=== PATIENT | male | born 1945 | race Caucasian/White ===

== ENCOUNTER 2016-05-02 17:13 | Inpatient (IN) | payer MEDICARE, OTHER ==
[2016-05-02] MEDS ORDERED: Haloperidol Lactate 5 mg/mL 1mL Vial ONE (17:34)
[2016-05-02] MEDS ORDERED: Haloperidol Lactate 5 mg/mL 1mL Vial IM PRN (17:43)
[2016-05-02 18:25] VITALS: BP 158/94
[2016-05-02] MEDS ORDERED: Magnesium Hydroxide (MOM) 30 mL UDC PO PRN (19:45)
[2016-05-02] MEDS ORDERED: OLANZapine 10 mg Oral Disintegrating Tab PO SCH (21:00)
--- NOTE | 2016-05-03 10:28 | Diagnostic Imaging Report ---
CHEST X-RAY: AP view INDICATION: Pneumonia COMPARISON: Chest x-ray 10/23/2014 FINDINGS: Mild chronic lung changes are noted. There is no focal consolidation or pleural effusions The heart is normal in size. The osseous structures demonstrate no acute abnormalities. No evidence of a pneumothorax. IMPRESSION: No focal acute pulmonary process.
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
--- NOTE | 2016-05-04 19:17 | Progress Notes ---
TIME PATIENT SEEN: 10:15 a.m. SUBJECTIVE: Staff was spoken to. The patient is interviewed. Mood is noted to be irritable. Affect is constricted. The patient is still having a pressured speech. Insight and judgment are noted to be very much impaired. Impulse control seems to be poor. The patient is noted to be very intrusive. No side effects to the medications are noted. The patient is ____ Zyprexa and Seroquel. Yesterday, the patient was mentioning that he did not like the Zyprexa. He would like to go with the Seroquel, but today he is stating that he wants the Zyprexa again. ASSESSMENT: The patient is still confused and having acute mood swings. PLAN: To continue the patient with supportive therapy. I encouraged the patient to verbalize the concerns rather than to act out. JOB# [id number]
--- NOTE | 2016-05-06 00:36 | Progress Notes ---
TIME PATIENT SEEN: 5:45 p.m. SUBJECTIVE: Staff was spoken to. The patient is interviewed. Mood is noted to be irritable. Affect is constricted. Insight and judgment are noted to be impaired. Impulse control seems to be poor. Coping skills are also noted to be poor. The patient is still ____testing the limits. The patient's major concern is the mood swings and intrusiveness. ASSESSMENT: The patient is still grossly psychotic and impulsive. PLAN: To continue the patient with the supportive therapy. I encouraged the patient to verbalize the concerns rather than to act out. The patient is not ready to be discharged to a lower level of care yet. JOB# [id number]
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
--- NOTE | 2016-05-07 23:44 | Progress Notes ---
PSYCHIATRIC PROGRESS NOTE TIME PATIENT SEEN: 9 a.m. SUBJECTIVE: Staff was spoken to. The patient is interviewed. Mood is noted to be anxious. Affect is constricted. Insight and judgment at this time are noted to be still impaired. Impulse control seemed to be limited. Coping skills are also noted to be poor. No side effects to the medications are noted. The patient has been having acute mood swings. The patient's sleep is noted to be poor. Appetite is noted to be improving at this time. ASSESSMENT: The patient is still having mood swings and psychosis. PLAN: To continue the patient with supportive therapy and followup. JOB# [id number]
--- NOTE | 2016-05-08 21:33 | Progress Notes ---
PSYCHIATRIC PROGRESS NOTE TIME PATIENT SEEN: 9:00 a.m. SUBJECTIVE: Staff was spoken to. The patient is interviewed. Mood is noted to be irritable. Affect is constricted. The patient's behavior is noted to be very bizarre. The patient has ____ and has defecated and urinated ____. The patient has no insight into his illness. The patient is grossly psychotic at this time. ASSESSMENT: The patient is still very psychotic and impulsive. PLAN: To continue the patient with the current medications. I encouraged the patient to verbalize the concerns rather than to act out. The patient is going to be closely monitored. JOB# [id number]
--- NOTE | 2016-05-09 22:05 | Progress Notes ---
PSYCHIATRIC PROGRESS NOTE TIME PATIENT SEEN: 4:00 p.m. SUBJECTIVE: Staff was spoken to. The patient is interviewed. Mood is noted to be irritable. Affect is constricted. Insight and judgment are noted to be impaired. Impulse control seems to be poor. The patient is still testing the limits. The patient is acting very bizarre. Coping skills are noted to be very poor at this time. The patient has been refusing to take the Seroquel in the morning and hence the evening dose of the Seroquel is going to be increased to 200 mg and the patient is going to be followed up. The patient is not ready to be discharged to his lower level of care yet. [facility]# [id number]
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
--- NOTE | 2016-05-12 00:52 | Progress Notes ---
PSYCHIATRIC PROGRESS NOTE TIME PATIENT SEEN: 10:15 a.m. SUBJECTIVE: Staff was spoken to. The patient is interviewed. Mood is noted to be dysphoric. Coping skills are noted to be very poor. The patient's . The patient is pacing most of the time on the unit, and the patient has been demanding that he should be discharged. The patient has no place to return to. [address] [employer] property manager has been diligently trying to look for placement for this patient, but the patient has been refusing to go to a group home facility. ASSESSMENT: The patient is still psychotic and impulsive. PLAN: To continue the patient with the current medications and request for the Depakote level. JOB# [id number]
--- NOTE | 2016-05-13 04:58 | Progress Notes ---
TIME PATIENT SEEN: 10 a.m. SUBJECTIVE: Staff was spoken to. The patient is interviewed. Mood is noted to be irritable. Affect is labile. Insight and judgment appear to be very much impaired. The patient is bizarre, but he has been able to be redirected. No side effect to meds are noted. The patient, however, has been testing limits he wants to take the Zyprexa, then Seroquel. The patient is on 200 mg of the Seroquel at nighttime.The patient has no placement . surgical manager has been diligently tryingto look for placement for this patient. ASSESSMENT: The patient is still psychotic. PLAN: To continue the patient with the supportive therapy and follow. JOB# [id number] [email or web address]
--- NOTE | 2016-05-13 18:52 | Progress Notes ---
TIME PATIENT SEEN: 08:15 a.m. SUBJECTIVE: Staff was spoken to. The patient is interviewed. Mood is noted to be anxious. The patient is stating that he is not cared for and he wants to find a reason why the patient is asking that he needs to file his nails. The patient has no insight into his illness. Continues to be paranoid, pacing most of the time on the unit. The patient's behavioral health case manager has been looking to convince the patient to go to a fdc facility as the patient has been reluctant stating that he has his own place. ASSESSMENT: The patient is still psychotic. PLAN: To continue the patient with Seroquel and Depakote and follow him up with supportive therapy. JOB# [id number]
--- NOTE | 2016-05-14 12:32 | Progress Notes ---
PSYCHIATRIC PROGRESS NOTE TIME PATIENT SEEN: 7:15 a.m. SUBJECTIVE: Staff was spoken to. The patient is interviewed. Mood is noted to be irritable. Affect is constricted. Insight and judgment at this time are noted to be still impaired. Impulse control seems to be limited. The patient has been having difficult time to accept that he needs replacement. trials manager has been trying to get the patient into a stable environment, but patient has been refusing to do so. So far, the patient has been currently on Seroquel and is going to be gradually increased to 300 mg at bedtime. The patient is continued on the Depakote at 500 mg twice a day. The patient is going to be closely monitored. The patient has been very argumentative and has no place to return to and it is becoming difficult to look for placement for this patient. trials manager is going to be contacted with regards to the possible discharge at this patient when he is stabilized. JOB# [id number]
--- NOTE | 2016-05-16 13:07 | Progress Notes ---
PSYCHIATRIC PROGRESS NOTE TIME PATIENT SEEN: 7:15 a.m. SUBJECTIVE: Staff was spoken to. The patient is interviewed. Mood is noted to be anxious. Affect is appropriate. Not suicidal or homicidal. Insight and judgment noted to be fair. Impulse control is also noted to be fair. The patient is stating that he has his own psychiatrist outpatient basis and he is going to be following through. The patient's friend from the [facility] has been willing to come and pick him up. ASSESSMENT: The patient is stabilizing. PLAN: To continue the patient with the supportive therapy. The patient is currently on Depakote and Seroquel, but he changes his mind and he wants to go on the Zyprexa when he gets out. The patient is going to be discharged today for followup on outpatient basis. JOB# [id number]
--- NOTE | 2016-05-19 16:24 | History & Physical ---
HISTORY OF PRESENT ILLNESS: The patient is 71 years old, with long history of psychosis, dementia, COPD, admitted to [facility] for evaluation and treatment. The patient denies any chest pain, any shortness of breath, nausea, vomiting, fever, chills. PAST MEDICAL HISTORY: Significant for COPD and psychosis. PAST SURGICAL HISTORY: No recent surgery. ALLERGIES: None. MEDICATIONS: Follow admission reconciliation. SOCIAL HISTORY: He is a chronic smoker. No alcohol, no drugs. FAMILY HISTORY: Noncontributory. REVIEW OF SYSTEMS: RENAL SYSTEM: No history of chronic renal disorder. CARDIOVASCULAR SYSTEM: No coronary artery disease. ENDOCRINE SYSTEM: No diabetes or thyroid problem. GASTROINTESTINAL SYSTEM: No upper or lower gastrointestinal bleed. NEUROLOGICAL: He has psychosis. MUSCULOSKELETAL SYSTEM: No muscular dystrophy. HEMATOLOGIC SYSTEM: No bleeding tendencies. PULMONARY SYSTEM: He has history of COPD. GENITOURINARY: No dysuria or hematuria. PHYSICAL EXAMINATION: GENERAL: He is awake, alert, mildly confused. VITAL SIGNS: Temperature 98, heart rate 78, blood pressure 134/70. HEENT: Normocephalic. Pupils reactive to light and accommodation. Sclerae clear. NECK: Supple. Negative for lymphadenopathy, JVD or bruit. CHEST: Bilateral diminished. No wheezing. HEART: S1, S2 normal, no gallop. ABDOMEN: Soft, bowel sounds positive. EXTREMITIES: No edema. NEUROLOGIC: He is awake, alert, mildly confused. No focal motor or sensory deficits. Cranial nerves 2-12 intact. ASSESSMENT: 1. Chronic obstructive pulmonary disease. 2. Psychosis. PLAN: The patient admitted to the hospital under Dr. Guerrero's service. MEDICAL PROBLEM TO BE ADDRESSED DURING HOSPITALIZATION: Psychosis. MEDICAL PROBLEMS TO BE ADDRESSED AT DISCHARGE: COPD, ____ smoking. The patient is medically stable for activity. Thank Dr. Guerrero for asking me to see your patient. JOB# [id number]
--- NOTE | 2016-05-28 19:53 | Discharge Summary ---
IDENTIFYING DATA: The patient is a 71-year-old male living by himself. JUSTIFICATION OF HOSPITALIZATION: The patient is admitted on a 5250 ____ . CHIEF COMPLAINT: ____. DIAGNOSES AT THE TIME OF ADMISSION: AXIS I: 1a. Bipolar disorder, mixed with psychotic symptoms rule out schizoaffective disorder. 1b. Alcohol abuse. AXIS II: None. AXIS III: As per DrMarilee ____. HISTORY OF PRESENT ILLNESS: Please refer to the 05/03/2016, dictation done by me. Physical examination was done by Dr. Issa and is noted to be significant for COPD. HOSPITAL COURSE AND RESPONSE TO TREATMENT: Blood work has been reviewed and the patient has been encouraged to participate in the groups and verbalize the concerns. The patient has been started on Depakote, which is raised up to 500 mg twice a day. The patient has been placed on the Seroquel, which was increased up to 300 mg. With these medications the patient's mood swings started to come under control, aggressive behavior came under control and the patient was finally discharged on 05/16/2016, with the recommendation that he is going to be seeking treatment at the ____ and the patient is going to be followed up by a psychiatrist over there. MENTAL STATUS EXAMINATION AT THE TIME OF DISCHARGE: Noted to be stable. The patient is not presenting as a threat to self or others. Mood swings are still coming under control. DIAGNOSES AT THE TIME OF DISCHARGE: AXIS I: Bipolar disorder mixed with psychotic symptoms. AXIS II: None. AXIS III: Chronic obstructive pulmonary disease. AFTERCARE PLAN: The patient is discharged to [facility] to be followed up on an outpatient basis. PROGNOSIS: At the time of discharge is noted to be guarded. JOB# [id number]
== END 2016-05-16 12:00 | disposition home or self-care (01) | DRG 885 ==
LOC: GERO 17:13
PROVIDERS: ADMIT Psychiatry & Neurology Psychiatry; ATTEND Psychiatry & Neurology Psychiatry
DX: F31.60 Bipolar disorder, current episode mixed, unspecified (principal); J44.9 Chronic obstructive pulmonary disease, unspecified; F10.10 Alcohol abuse, uncomplicated; F29 Unspecified psychosis not due to a substance or known physiological condition; Z88.8 Allergy status to other drugs, medicaments and biological substances; Z88.0 Allergy status to penicillin
CPT/HCPCS: 71010-TC; 90899; G0410; J1200; J1630; Z7610

== ENCOUNTER 2017-08-01 16:12 | Inpatient (IN) | payer MEDICARE, OTHER ==
[2017-08-01 16:53] VITALS: BP 0/0
[2017-08-01] MEDS ORDERED: Magnesium Hydroxide (MOM) 30 mL UDC PO PRN (17:26)
[2017-08-02] MEDS: Multivitamin Tab PO SCH (08:13)
[2017-08-02] MEDS: Maalox 30 mL Cup PO PRN (11:19)
[2017-08-02] MEDS ORDERED: Magnesium Hydroxide (MOM) 30 mL UDC PO PRN (13:28)
[2017-08-02] MEDS ORDERED: Haloperidol Lactate 5 mg/mL 1mL Vial ONE (16:35)
[2017-08-02] MEDS ORDERED: Haloperidol Lactate 5 mg/mL 1mL Vial IM ONE (16:40)
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
[2017-08-03] MEDS: Multivitamin Tab PO SCH (08:58)
--- NOTE | 2017-08-04 01:32 | Progress Notes ---
DATE: 08/03/2017 SUBJECTIVE: Staff was spoken to. The patient is interviewed. Mood is noted to be irritable. Affect is constricted. Coping skills at this time are noted to be very poor. Insight and judgment also noted to be very poor. The patient is still testing the limits. No side effects to the medications are noted. The patient has been pacing most of the time on the unit. The patient has been verbally abusive towards the staff. ASSESSMENT: The patient is still impulsive and psychotic. PLAN: To continue the patient with the current medications and follow up with the supportive therapy. JOB# [id number]
--- NOTE | 2017-08-04 05:56 | Consultation ---
DATE OF CONSULTATION: 08/03/2017 REFERRING PHYSICIAN: Estephania Guerrero MD TYPE OF CONSULTATION: Psychology. HISTORY OF PRESENT ILLNESS: The patient is a 72-year-old male. According to the record, the patient is homeless. The following is by review of the medical record and by the patient's self-report. The patient is being admitted on a 5150 from [facility]. Upon interview, the patient admits that he is in need of help. According to the record, the patient has been homeless and panhandling on the street and unable to support himself. The patient was evaluated by the police and placed on a 5150 and taken to [facility]. The patient was medically stabilized and transferred here for further stabilization. The patient currently denies any suicidal ideation, plan or intention. PAST MEDICAL HISTORY: Please see history and physical by Dr. Zelaya. PAST PSYCHIATRIC HISTORY: The patient has had multiple previous psychiatric hospitalizations. The patient has had a hospitalization here in the past. The patient has a history of bipolar disorder. The patient has a history of noncompliance with medication according to review of the record. SUBSTANCE ABUSE HISTORY: The patient has a history of alcohol dependence. The patient denied any current use. This needs further evaluation. PSYCHOSOCIAL HISTORY: The patient is currently homeless. The patient did not answer questions about occupational history or educational history. The patient denies any current legal problems. This may need clarification. The patient denied any history of physical or sexual abuse. The patient states that he is gnosticism, but did not specify any denomination or gnosticism affiliation. MENTAL STATUS EXAMINATION: The patient appears to be his stated age. The patient's attitude is superficially cooperative. Eye contact is poor. Speech is pressured and rambling. Mood is irritable. Affect is constricted. Thought process shows to be markedly tangential. The patient denied any auditory or visual hallucinations. The patient denies any delusions. There may be evidence of some paranoid ideation, this needs further evaluation. The patient denied any suicidal ideation, plan or intention. During the clinical interview the patient became easily agitated with episodes of verbal abuse. The patient was able to be deescalated. Impulse control is inadequate. Concentration is poor. There are apparent cognitive deficits. The patient did not participate in the memory assessment. The patient did not participate in the interpretation of proverbs. Sensorium is alert and oriented to person, place and self. Insight is impaired. Judgment is impaired. DIAGNOSTIC IMPRESSION: AXIS I: 1. History of bipolar disorder mixed with psychotic symptoms. 2. Provisional diagnosis of alcohol dependence. AXIS II: Deferred. AXIS III: Please see history and physical by Dr. Zelaya. TREATMENT PLAN: The patient has been seen by Dr. Guerrero for psychiatric evaluation and further management of the patient's psychotropic medications. The patient was having a difficult time coping and became verbally abusive towards staff members as well as screaming and yelling. The patient was given a dose of Haldol, Benadryl and Ativan to assist with de-escalation and containing his acting out behaviors. The patient is currently on divalproex 500 mg twice a day and is also on 300 mg of Seroquel at nighttime. These medications are to be continued according to the MD psychiatrist. We will provide supportive psychotherapy to include reality orientation, reality differentiation and reality integration. We will provide a simple de-escalation skill and limit setting to assist the patient and becoming cognitively and behaviorally redirectable and to follow through with staff direction. We will provide stress management to increase the patient's frustration tolerance. We will provide motivational enhancement for the patient to become compliant and stay compliant with all aspects of his care and treatment plan. We will encourage the patient to be able to demonstrate emotional and self-regulation prior to discharge. We will provide coping strategies for phase of life issues as well as for chronic long-term severe mental illness. We will provide motivational interviewing for abstinence from alcohol and possible residential treatment. We will encourage the patient to accept placement and to be followed by both Psychiatry and Psychology post-discharge. Thank you, Dr. Guerrero, for this consult and the opportunity to participate in this patient's care. JOB# [id number] BEATA
[2017-08-04] MEDS: Multivitamin Tab PO SCH (09:13)
--- NOTE | 2017-08-04 17:30 | Progress Notes ---
DATE: 08/04/2017 PSYCHIATRIC PROGRESS NOTE SUBJECTIVE: Staff was spoken to. The patient is interviewed. Mood is noted to be irritable. Affect is constricted. The patient is very selective in taking the medications. The patient is stating that he does not need the Depakote in the morning because that is making him to be too sleepy and the patient is reporting that he needs to be on the Depakote only at nighttime. The patient has been testing the limits. The patient has been having acute mood swings. The patient's insight and judgment at this time are noted to be very much impaired. Impulse control is noted to be poor. Coping skills are noted to be poor. ASSESSMENT: The patient is still having mood swings. PLAN: Since the patient has been reluctant to comply with the Depakote in the morning and it is decided to go with 1000 mg of Depakote at nighttime and continue the patient on the Seroquel. The patient is at this time, still not ready to be discharged to a lower level of care in view of his acute mood swings and paranoia. JOB# [id number]
[2017-08-04] MEDS: Maalox 30 mL Cup PO PRN (22:13)
[2017-08-05] MEDS: Multivitamin Tab PO SCH (08:46)
[2017-08-05] MEDS ORDERED: Haloperidol Lactate 5 mg/mL 1mL Vial IM ONE (10:29)
[2017-08-05] MEDS: Maalox 30 mL Cup PO PRN ×2 (10:54→21:35)
--- NOTE | 2017-08-05 14:23 | Progress Notes ---
DATE: 08/05/2017 SUBJECTIVE: Staff was spoken to. The patient is interviewed. The patient is very disruptive. The patient has been out of control and ____ judgment are very much impaired. The patient is still insisting on having his way. ASSESSMENT: The patient is still impulsive and psychotic. PLAN: To add the Haldol 5 mg, Benadryl 50 and Ativan 1 mg p.o. now to contain the patient's agitation and followup. JOB# [id number]
[2017-08-06] MEDS: Multivitamin Tab PO SCH (08:54)
[2017-08-06] MEDS: Maalox 30 mL Cup PO PRN ×2 (10:06→20:38)
--- NOTE | 2017-08-07 01:47 | Progress Notes ---
DATE: 08/06/2017 SUBJECTIVE: Staff was spoken to. The patient is interviewed. Mood is noted to be irritable. Affect is constricted. Insight and judgment are noted to be still impaired. Impulse control is noted to be poor. Coping skills are also noted to be very poor. The patient has been having difficult time to cope with the stress. The patient continues to be irritable and angry. No side effects to the medications are noted. The patient has been closely monitored. The patient is currently on the valproic acid 1000 mg at bedtime and Seroquel is being given at 300 mg at bedtime. The patient has been able to tolerate the medications. No side effects to the medications are noted at this time. ASSESSMENT: The patient is still impulsive and having mood swings. PLAN: To continue the patient with the supportive therapy and followup. JOB# [id number]
[2017-08-07] MEDS: Multivitamin Tab PO SCH (09:11)
[2017-08-07] MEDS: Maalox 30 mL Cup PO PRN (10:30)
--- NOTE | 2017-08-08 01:05 | Progress Notes ---
DATE: 08/07/2017 SUBJECTIVE: Staff was spoken to. The patient is interviewed. Mood is noted to be anxious. Affect is constricted. Insight and judgment at this time are noted to be still impaired. Impulse control seems to be limited. The patient has been displaying very disruptive behavior and aggressive behavior. The patient has been drinking from the urinal and has been getting the coffee into the urinal. The patient has no insight into his illness. Coping skills are noted to be very poor. The patient has been redirected at this time. The patient is currently on Seroquel and has been able to tolerate the medication. ASSESSMENT: The patient is still grossly psychotic, impulsive and gravely disabled. PLAN: To continue the patient with the supportive therapy, I encouraged the patient to verbalize the concerns. The patient is currently on 1000 mg of the Depakote and 300 mg of the Seroquel, which is going to be increased to 400 mg at bedtime and the patient is going to be followed up. The patient is grossly psychotic and he is not ready to be discharged to a lower level of care. JOB# [id number]
[2017-08-08] MEDS: Multivitamin Tab PO SCH (09:10)
[2017-08-08] MEDS: Maalox 30 mL Cup PO PRN (10:49)
--- NOTE | 2017-08-09 00:18 | Progress Notes ---
DATE: 08/08/2017 SUBJECTIVE: Staff was spoken to. The patient is interviewed. Mood is noted to be irritable. Affect is constricted. The patient's insight and judgment are noted to be still impaired. Impulse control is noted to be limited. The patient has been pacing most of the time on the unit. The patient is stating that he has been having stomach upset. . The patient is currently on Seroquel 400 mg at bedtime and Depakote 1000 mg at bedtime. Even with these medications, the patient has been having difficult time to cope with the stress. No side effects to the medications are noted. ASSESSMENT: The patient is still grossly psychotic and having acute mood swings. PLAN: To continue the patient with the supportive therapy, encouraged the patient to verbalize the concerns rather than to act out. JOB# [id number]
[2017-08-09] MEDS: Multivitamin Tab PO SCH (09:29)
--- NOTE | 2017-08-10 01:34 | Progress Notes ---
DATE: 08/09/2017 PSYCHIATRIC PROGRESS NOTE SUBJECTIVE: Staff was spoken to. The patient is interviewed. Mood is noted to be depressed. Affect is constricted. The patient's coping skills are noted to be poor. Insight and judgment are also noted to be limited. The patient has been pacing most of the time on the unit. No side effects to the medications are noted. Bizarre behavior is a major concern. Personal hygiene is noted to be poor today. ASSESSMENT: The patient is still impulsive. PLAN: To continue the patient with the supportive therapy. I encouraged the patient to verbalize the concerns rather than to act out. JOB# [id number]
--- NOTE | 2017-08-10 08:37 | Progress Notes ---
DATE: 08/10/2017 Staff was spoken to. The patient is interviewed. Mood is noted to be irritable. Affect is constricted. The patient has been disheveled still. The patient, however, has been less aggressive. He goes on a tangent but not presenting with any major side effects from the medications. The patient is currently on Depakote 1000 mg at bedtime, he does not want to take more than that one. The patient is also on 400 mg of Seroquel and has been able to tolerate. No side effects to medications are noted. merchandising execution manager is looking for placement for this patient. JOB# [id number]
[2017-08-10] MEDS: Multivitamin Tab PO SCH (09:31)
[2017-08-10] MEDS: Pantoprazole 40 mg EC Tab PO SCH (16:58)
[2017-08-11] MEDS: Pantoprazole 40 mg EC Tab PO SCH (06:32)
[2017-08-11] MEDS: Multivitamin Tab PO SCH ×2 (08:06→08:16)
--- NOTE | 2017-08-11 18:12 | Progress Notes ---
DATE: 08/11/2017 SUBJECTIVE: Staff was spoken to. The patient is interviewed. Mood is noted to be irritable today. The patient's insight and judgment also noted to be impaired. The patient has been pacing on the unit. The patient was doing a little bit better yesterday, but all of a sudden today, he has been having difficult time to cope with the stress. No side effects to the medications are noted. The patient is currently on Depakote and Seroquel and has been able to tolerate the medication. ASSESSMENT: The patient is very dysphoric and paranoid. PLAN: To continue the patient with the supportive therapy and followup. JOB# [id number]
[2017-08-12] MEDS: Pantoprazole 40 mg EC Tab PO SCH (06:39)
[2017-08-12] MEDS: Multivitamin Tab PO SCH (08:53)
--- NOTE | 2017-08-12 14:52 | Progress Notes ---
DATE: 08/12/2017 SUBJECTIVE: Staff was spoken to. The patient is interviewed. Mood is noted to be irritable. Affect is constricted. The patient has paranoid delusions, but denies any command hallucinations. No side effects to the medications are noted. The patient is currently 1000 mg of the Depakote at bedtime and has been on Seroquel 400 mg. Valproic acid level that was ordered yesterday was 54.1. No side effect of medications are noted at this time. ASSESSMENT: The patient is still paranoid and awaiting placement. PLAN: To continue the patient with the supportive therapy and followup. JOB# [id number]
[2017-08-12] MEDS: Maalox 30 mL Cup PO PRN (20:53)
[2017-08-13] MEDS: Pantoprazole 40 mg EC Tab PO SCH (06:51)
[2017-08-13] MEDS: Multivitamin Tab PO SCH (08:53)
--- NOTE | 2017-08-13 12:16 | Discharge Summary ---
DATE OF DISCHARGE: 08/13/2017 PSYCHIATRIC DISCHARGE SUMMARY IDENTIFYING DATA: The patient is a 72-year-old male, currently homeless. JUSTIFICATION OF HOSPITALIZATION: The patient ____ transferred from [facility]. CHIEF COMPLAINT: "I need some help." DIAGNOSES AT THE TIME OF ADMISSION: AXIS I: Bipolar disorder, mixed with psychotic symptoms. AXIS II: None. AXIS III: As per Dr. Zelaya. HISTORY OF PRESENT ILLNESS: Please refer to the 08/02/2017 dictation done by me. PHYSICAL EXAMINATION: Done by Dr. Zelaya and is noted to be significant for chronic kidney disease and chronic obstructive pulmonary disease. HOSPITAL COURSE AND RESPONSE TO TREATMENT: The patient has been observed on inpatient unit, provided with supportive psychotherapy. The patient has been started on Depakote and Seroquel. The patient has been closely monitored and the patient has been able to tolerate and hence the patient was finally discharged on 08/13/2017 to [facility] for further followup. MENTAL STATUS EXAMINATION: At the time of discharge, the patient's mood is noted to be less irritable. Affect is appropriate. Not suicidal or homicidal. Coping skills are noted to be fair. Sleep and appetite are also noted to be fair. DIAGNOSES AT THE TIME OF DISCHARGE: AXIS I: Bipolar disorder, mixed with psychotic symptoms. AXIS II: None. AXIS III: Chronic obstructive pulmonary disease. AFTERCARE PLAN: The patient is discharged to [facility] to be followed up on an outpatient basis. PROGNOSIS AT THE TIME OF DISCHARGE: Noted to be guarded. JOB# [id number]
== END 2017-08-13 13:35 | DRG 885 ==
LOC: GERO2 16:12 → GERO 08-03 15:36 → GERO2 08-09 06:04 → GERO 08-09 19:43
PROVIDERS: ADMIT Psychiatry & Neurology Psychiatry; ATTEND Psychiatry & Neurology Psychiatry
DX: F31.64 Bipolar disorder, current episode mixed, severe, with psychotic features (principal); N18.3 Chronic kidney disease, stage 3 (moderate); Z59.0 Homelessness; I12.9 Hypertensive chronic kidney disease with stage 1 through stage 4 chronic kidney disease, or unspecified chronic kidney disease; J44.9 Chronic obstructive pulmonary disease, unspecified; F17.210 Nicotine dependence, cigarettes, uncomplicated; F10.20 Alcohol dependence, uncomplicated
CPT/HCPCS: 36415-UA; 80164-TC; 94760; G0410; J1200; J1630; J2060; J7042; Z7610